=== PATIENT | female | born 1960 | race Caucasian/White ===

== ENCOUNTER 2019-05-23 09:37 | Outpatient (CLI) | payer MEDICARE, MEDICAID, SELFPAY ==
--- NOTE | 2019-05-23 09:57 | USCV_ITS ---
Laura Dunlap Age: 58 Gender: F : 1960 Exam Date: 05/23/2019 10:31 Ordering Phys: Jeannie Neff MD ([email or web address]) Technologist: Isidro Beauchamp [place]am Location: [facility] [place] Indication: IREG HEART BEAT BP: 130 / 80 HR: 95 Rhythm: Sinus Technical Quality: Fair MEASUREMENTS (Male / Female) Normal Values 2D ECHO LV Diastolic Diameter PLAX 2.6 cm 4.2 - 5.9 / 3.9 - 5.3 cm LV Systolic Diameter PLAX 1.8 cm IVS Diastolic Thickness 1.0 cm 0.6 - 1.0 / 0.6 - 0.9 cm IVS Systolic Thickness 0.9 cm LVPW Diastolic Thickness 1.1 cm 0.6 - 1.0 / 0.6 - 0.9 cm LVPW Systolic Thickness 1.1 cm LVOT Diameter 2.0 cm LV Ejection Fraction 2D Teich 62.8 % LV Ejection Fraction MOD 2C 65.8 % LV Ejection Fraction 2C AL 65.8 % LA Diameter 2.9 cm LA Width 3.9 cm LA Height 3.6 cm RA Width 3.7 cm RA Height 2.9 cm Aorta at Sinotubular Diameter 2.6 cm M-MODE Aortic Annulus Diameter 3.4 cm LA Ao Ratio MM 0.8 MV E Point Septal Separation 1.6 cm DOPPLER AV Peak Velocity 113.0 cm/s LVOT Peak Velocity 98.0 cm/s AV Area Cont Eq vti 3.0 cm squared AV Area Cont Eq pk 2.8 cm squared MV Area PHT 5.0 cm squared Mitral E to A Ratio 0.7 MV E' Velocity 13.0 cm/s Mitral E to MV E' Ratio 6.1 Mitral E to LV E' Lateral Ratio 4.4 Mitral E to LV E' Septal Ratio 10.3 TR Peak Velocity 163.0 cm/s TR Peak Gradient 10.7 mmHg Right Atrial Pressure 3.0 mmHg Pulmonary Artery Systolic Pressu 13.6 mmHg FINDINGS Left Ventricle Normal left ventricular cavity size. Normal left ventricular systolic function. Left ventricular ejection fraction is estimated at 65%. No regional wall motion abnormalities. Grade 1 diastolic dysfunction. Right Ventricle Normal right ventricular size and systolic function. Right ventricular systolic pressure 13.6 mmHg. Right Atrium Normal right atrial size. Left Atrium Normal left atrial size. Mitral Valve Structurally normal mitral valve. No mitral valve stenosis. Trace mitral valve regurgitation. Aortic Valve Structurally normal trileaflet aortic valve. No aortic valve stenosis. No aortic valve regurgitation. Tricuspid Valve Tricuspid valve not well visualized. Trace tricuspid valve regurgitation. Pulmonic Valve Pulmonic valve not well visualized. No pulmonary valve stenosis. Trace pulmonary valve regurgitation. Pericardium No pericardial effusion. Aorta Normal-sized aortic root. CONCLUSIONS 1. Normal left ventricular cavity size and systolic function. Left ventricular ejection fraction is estimated at 65%. No regional wall motion abnormalities. Grade 1 diastolic dysfunction. 2. Normal right ventricular size and systolic function. 3. No significant valvular abnormality. 4. Normal pulmonary artery pressure. 5. No prior similar studies to compare. Jeannie Neff MD (Electronically Signed) Final Date: 26 May 2019 17:46 S
== END 2019-05-23 09:38 | disposition home or self-care (01) ==
LOC: RAD 09:44
PROVIDERS: PCP Nurse Practitioner Family; Visit Provider Internal Medicine Cardiovascular Disease
DX: I08.1 Rheumatic disorders of both mitral and tricuspid valves (principal); R06.09 Other forms of dyspnea
CPT/HCPCS: 93306

== ENCOUNTER 2019-05-30 10:36 | Outpatient (CLI) | payer MEDICARE, MEDICAID, SELFPAY ==
[2019-06-02 16:02] LABS: Immunoglobulin E 15 kU/L (<OR=114)
== END 2019-05-30 10:37 | disposition home or self-care (01) ==
LOC: LAB 10:41
PROVIDERS: PCP Nurse Practitioner Family; Visit Provider Internal Medicine Critical Care Medicine
DX: J44.9 Chronic obstructive pulmonary disease, unspecified (principal)
CPT/HCPCS: 36415; 82785

== ENCOUNTER 2019-06-18 07:25 | Outpatient (RCR) | payer MEDICARE, MEDICAID, SELFPAY | END 2019-07-12 23:59 | disposition home or self-care (01) | LOC: PULRHB 07:25 | PROVIDERS: PCP Nurse Practitioner Family; Visit Provider Internal Medicine | DX: Z01.89 Encounter for other specified special examinations (principal) ==

== ENCOUNTER 2019-07-21 08:54 | Emergency (ER) | payer MEDICARE, MEDICAID, SELFPAY ==
--- NOTE | 2019-07-21 09:04 | XR_ITS ---
WS: [id number] PORTABLE CHEST HISTORY: cough/congestion COMPARISON: 03/28/2019 Lung volumes are decreased. There is minimal blunting of the LEFT costophrenic angle which is similar to prior studies. May be due to small amount of pleural thickening. No pleural effusion or pneumotho rax. Cardiac size: Normal. Mediastinum/Aorta: Normal mediastinum. No osseous abnormality seen. XR/XR chest 1V portable [id number] IMPRESSION: Minimal blunting of the LEFT costophrenic angle is unchanged. No pneumonia.
[2019-07-21 09:06] VITALS: BP 124/87; PULSE 102; RESP 18; TEMP 36.9; O2SAT 97; BMI 29.9
[2019-07-21 09:49] LABS: Basophils % 0.2 %; Eosinophils % 0.1 %; Hematocrit 41.5 % (37.0-47.0); Hemoglobin 12.8 g/dL (11.5-15.3); Lymphocytes # 1.2 10^3/uL (0.8-4.8); Lymphocytes % 12.6 %; Mean Corpuscular HGB Conc 30.8 g/dL (30.0-36.0); Mean Corpuscular Hemoglobin 28.1 pg (28.0-34.0); Mean Platelet Volume 9.1 fL (7.4-10.4); Monocytes # 0.5 10^3/uL (0.2-0.9); Monocytes % 5.5 %; Neutrophils # 7.9 10^3/uL (1.8-7.7); Neutrophils % 81.3 %; Nucleated Red Blood Cells % 0 %; Platelet Count 394 10^3/cmm (130-400); Red Blood Count 4.56 10^6/uL (4.1-5.3); Red Cell Distribution Width 13.2 % (12.1-15.1); White Blood Count 9.8 10^3/uL (4.0-10.0)
[2019-07-21 09:58] LABS: Influenza A by IFA Negative (Negative); Influenza B by IFA Negative (Negative)
[2019-07-21 10:05] LABS: Alanine Aminotransferase 9 U/L (0-33); Alkaline Phosphatase 112 IU/L (35-105); Aspartate Amino Transferase 21 U/L (0-32); Blood Urea Nitrogen 9 mg/dL (6-20); Carbon Dioxide 27 mmol/L (22-29); Chloride 102 mmol/L (98-107); Globulin 3.9 g/dL (1.3-4.6); Glomerular Filtration Rate 73.9 mL/min (90-130); Glucose 143 mg/dL (65-115); Osmolality Calculated 288 mOsm/kg (285-295); Sodium 140 mmol/L (136-145); Total Bilirubin 0.2 mg/dL (0.15-1.2); Total Protein 7.9 g/dL (6.6-8.7)
--- NOTE | 2019-07-21 10:23 | ED_ITS ---
HPI - SOB/Dyspnea General: Chief Complaint: Shortness of Breath/Dyspnea Stated Complaint: COUGHING Time Seen by Provider: 07/21/19 09:39 Source: patient and family Mode of arrival: ambulatory Limitations: no limitations History of Present Illness: HPI Narrative: Patient is a 58-year-old female who presents to ED today with complaints of cough and difficulty breathing. According to patient she has end-stage COPD and has been following up with pulmonology Dr. Bethea. Patient states over the past few days she has had a cough so bad that it has caused her to not be able to rest. She feels short of breath when coughing but otherwise normal. She has not been running fevers. Patient is chronically on 2 L of oxygen and has not had to increase this. MD elicited complaint: shortness of breath Pertinent past history: COPD Onset (ago): day(s) Timing: constant Severity: moderate Exacerbating factors: other (coughing) Relieving factors: nothing Known history of: COPD Associated symptoms: Reports no associated symptoms and chest congestion; Deny abdominal pain, chest pain, fever(s), hemoptysis, lightheadedness, nausea, palpitations, syncope or vomiting Review of Systems Const: Denies: fever, chills, body aches, change in appetite, change in weight, fatigue or malaise Eyes: Denies: change in vision or blurry vision ENMT: Denies: throat pain, enlarged tonsils or painful swallowing Card: Denies: chest pain, palpitations, irregular heart rhythm, edema, lightheadedness, syncope or pre-syncope Resp: Reports: shortness of breath, non-productive cough and chest congestion; Denies: wheezing or coughing up blood GI: Denies: abdominal pain, nausea or vomiting : Denies: flank pain, difficulty urinating or painful urination Musc: Denies: neck pain or back pain Skin/Breast: Denies: rash Neuro: Denies: headache, numbness in extremities, weakness in extremities or changes in sensation PFSH ED PFSH: Social History Smoking and tobacco status: former smoker Quit status (tobacco): has quit using tobacco Year quit tobacco: Age 26 - 1.5 PPDx10 Years Alcohol intake: never Lives independently: Yes Household members: spouse Marital status: History of recent travel: No Current gender identity: Female Physical Exam Const: COMMON NORMALS: no apparent distress, average body habitus, oriented x3, no limitations, healthy appearing, alert and well nourished HENMT: COMMON NORMALS: normocephalic, head/scalp atraumatic, hearing grossly normal bilaterally, external ears normal, EAC's normal, TM's normal bilaterally, external nose normal, nasal mucous membranes and turbinates normal, moist oral mucous membranes, oropharynx normal, dentition normal and gingiva normal HEAD & SCALP: normocephalic and atraumatic NOSE: external nose normal and nasal mucous membranes and turbinates normal EXTERNAL EAR: Yes external ears normal EXTERNAL AUDITORY CANAL: EAC's normal TYMPANIC MEMBRANE: TM's normal bilaterally Eye: COMMON NORMALS: PERRL, EOMs intact bilaterally, conjunctivae normal and no scleral icterus CONJUNCTIVA: Yes conjunctivae normal PUPIL: Yes PERRL Neck/C-Spine: COMMON NORMALS: full ROM, no lymphadenopathy and no meningeal signs Chest: COMMONS NORMALS: inspection of chest normal and palpation of chest normal Resp: COMMON NORMALS: normal respiratory effort AUSCULTATION: wheezes (faint; RUL, LLL) OTHER: dry sounding cough Cardio: COMMON NORMALS: regular rate and regular rhythm RATE: regular rate RHYTHM: regular rhythm Neuro: COMMON NORMALS: oriented x3 SENSORIUM/ORIENTATION: Yes alert MENINGEAL SIGNS: Yes no meningeal signs Skin: COMMON NORMALS: no rashes or lesions noted GENERAL SKIN EXAM: no rashes or lesions noted Course Vital Signs: Vital signs: Vital Signs Temperature 98.5 F 07/21/19 09:06 Pulse Rate 78 07/21/19 11:00 Respiratory Rate 20 H 07/21/19 11:00 Blood Pressure 145/85 07/21/19 11:00 Pulse Oximetry 98 07/21/19 11:00 MDM - SOB/Dyspnea MDM Narrative: Medical decision making narrative: Patient's labs are non- concerning. CXR is normal. She is not tachycardic or hypoxic. She has not required additional oxygen. 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 Strict return to ED precautions given. Lab Data: Labs: Lab Results 07/21/19 07/21/19 07/21/19 Range/Units 07:32 09:45 09:45 WBC 9.8 (4.0-10.0) 10^3/ uL RBC 4.56 (4.1-5.3) 10^6/u L Hgb 12.8 (11.5-15.3) g/dL Hct 41.5 (37.0-47.0) % MCV 91.0 (81-99) fL MCH 28.1 (28.0-34.0) pg MCHC 30.8 (30.0-36.0) g/dL RDW 13.2 (12.1-15.1) % Plt Count 394 (130-400) 10^3/c mm MPV 9.1 (7.4-10.4) fL Neut % (Auto) 81.3 % Lymph % (Auto) 12.6 % Jasper % (Auto) 5.5 % Eos % (Auto) 0.1 % Baso % (Auto) 0.2 % Neut # (Auto) 7.9 H (1.8-7.7) 10^3/u L Lymph # (Auto) 1.2 (0.8-4.8) 10^3/u L Jasper # (Auto) 0.5 (0.2-0.9) 10^3/u L Eos # (Auto) 0.0 (0.0-0.8) 10^3/u L Baso # (Auto) 0.0 (0.0-0.1) 10^3/u L Nucleated RBC % (a uto) 0 % Nucleated RBCs # 0.0 /100WBC Sodium 140 (136-145) mmol/L Potassium 5.0 (3.5-5.1) mmol/L Chloride 102 (98-107) mmol/L Carbon Dioxide 27 (22-29) mmol/L Anion Gap 16.0 (5-19) BUN 9 (6-20) mg/dL Creatinine 0.8 (0.5-0.9) mg/dL GFR Calculation 73.9 L (90-130) mL/min Glucose 143 H (65-115) mg/dL Calculated Osmolal ity 288 (285-295) mOsm/k g Calcium 10.0 (8.5-10.5) mg/dL Total Bilirubin 0.2 (0.15-1.2) mg/dL AST 21 (0-32) U/L ALT 9 (0-33) U/L Alkaline Phosphata se 112 H (35-105) IU/L Total Protein 7.9 (6.6-8.7) g/dL Albumin 4.0 (3.5-5.2) g/dL Globulin 3.9 (1.3-4.6) g/dL Influenza Type A A g Negative (Negative) POC Influenza B Ag Negative (Negative) Imaging Data^: CXR: Radiologist's impression: [address] [address] XRay Report Signed Patient: Laura Dunlap Unit #: [id number] : 1960 Age/Sex: 58 / F ADM Date: 07/21/19 Loc: ER Room/Bed: Attending Dr: Ordering Provider/Ordering MD: Racheal Ivey Date of Service: 07/21/19 Procedure(s): XR chest 1V portable [id number] Accession Number(s): [id number] Report Number: [id number] WS: [id number] PORTABLE CHEST HISTORY: cough/congestion COMPARISON: 03/28/2019 Lung volumes are decreased. There is minimal blunting of the LEFT costophrenic angle which is similar to prior studies. May be due to small amount of pleural thickening. No pleural effusion or pneumothorax. Cardiac size: Normal. Mediastinum/Aorta: Normal mediastinum. No osseous abnormality seen. XR/XR chest 1V portable [id number] IMPRESSION: Minimal blunting of the LEFT costophrenic angle is unchanged. No pneumonia. Dictated By: Natalya Chaudhary DO Signed By: Natalya Chaudhary DO Signed Date/Time: 07/21/19 1018 DD/ 1017 Discharge Plan Discharge Patient Disposition: Home, Self-Care Clinical Impression: Acute exacerbation of chronic obstructive airways disease Condition: Stable Prescriptions: New promethazine-DM 6.25-15 mg/5 mL syrup 5 ml PO Q6H PRN (Reason: cough) Qty: 100 RF: 0 doxycycline monohydrate 100 mg capsule 100 mg PO Q12H 10 Days Qty: 20 RF: 0 No Action fluticasone propionate 50 mcg/actuation spray,suspension 1 spray INTRANASAL Q12H 60 Days Qty: 36.4 RF: 2 Spiriva with HandiHaler 18 mcg capsule, w/inhalation device 1 cap INHALATION DAILY RF: 0 levothyroxine 88 mcg capsule 88 mcg PO DAILY RF: 0 albuterol sulfate [Ventolin HFA] 90 mcg/actuation HFA aerosol inhaler 2 puff INHALATION Q4H PRN (Reason: Shortness Of Breath) RF: 0 prednisone 5 mg tablet 5 mg PO DAILY RF: 0 azithromycin 500 mg tablet See Rx Instructions .ROUTE .COMPLEX RF: 0 aspirin [Adult Aspirin Regimen] 81 mg tablet,delayed release (DR/EC) 81 mg PO DAILY RF: 0 nitroglycerin 0.4 mg tablet, sublingual 0.4 mg SUBLINGUAL Q5M PRN (Reason: Chest Pain) RF: 0 budesonide [Pulmicort] 0.5 mg/2 mL suspension for nebulization 0.5 mg INHALATION BID Qty: 120 RF: 3 ipratropium-albuterol 0.5 mg-3 mg(2.5 mg base)/3 mL solution for nebulization 3 ml INHALATION QID Qty: 180 RF: 3 Discharge Orders: Discharge Order (Routine); Ordered 07/21/19 Ordered By: Racheal Ivey Referrals: [facility]PROY[facility] [Other] Germania Noble [Primary Care Provider] - Activity Restrictions/Additional Instructions: Please contact Dr. Bethea to schedule follow up visit. Return to the emergency department for worsening shortness of breath, having to increase her oxygen, fevers greater than 100.4, or any other concerns you may have. Discharge Date/Time: 07/21/19 11:00 Coding Level of Care Code ED Cancer Program Coordinator for Katherin Handy
[2019-07-21 10:32] VITALS: PULSE 98; RESP 17; O2SAT 98
[2019-07-21] MEDS: ipratropium-albuterol 3 mL Neb INHALATION (10:32)
[2019-07-21 10:38] VITALS: PULSE 92
--- NOTE | 2019-07-21 10:58 | PC.NURSE ---
PHYSICAL ASSESSMENT Chief Complaint: Short of breath GENERAL / NEURO / PSYCH: Alert and oriented x 4 AGAPITO COMA SCORE: 15 HEENT: No facial asymmetry noted. Mucous membranes are pink. RESPIRATORY: Lung sounds clear and equal. Non-productive cough CVS: Capillary refill less than 2 seconds. GI / : Abdomen soft and nontender and normal bowel sounds. SKIN: Skin intact. Skin is warm and dry. Normal skin turgor. -
[2019-07-21 11:00] VITALS: BP 145/85; PULSE 78; RESP 20; O2SAT 98
--- NOTE | 2019-07-22 11:15 | DCPLANNER ---
quality assurance project manager had message to schedule a follow up appointment for patient with [facility]. quality assurance project manager called [facility], spoke with Padmaja, gave clinic patients information. quality assurance project manager was told that patients information would be printed and reviewed. Clinic will alanna patient with appointment information.
--- NOTE | 2019-07-23 13:25 | DCPLANNER ---
Patient has a follow up appointment scheduled for Tuesday, August 06, 2019 at 2:[address] Neff. Clinic will call patient with appointment information.
--- NOTE | 2019-08-12 08:40 | DCPLANNER ---
Patient did attend appointment scheduled for 08.05.19 with [facility].
== END 2019-07-21 11:00 | disposition home or self-care (01) ==
PROVIDERS: Emergency Provider Physician Assistant; PCP Nurse Practitioner Family
DX: J44.1 Chronic obstructive pulmonary disease with (acute) exacerbation (principal); Z79.51 Long term (current) use of inhaled steroids; Z87.891 Personal history of nicotine dependence; Z99.81 Dependence on supplemental oxygen
CPT/HCPCS: 12345; 36415; 71045; 80053; 85025; 87804; 94640; 99281; 99283

== ENCOUNTER 2020-09-02 07:44 | Outpatient (CLI) | payer MEDICARE, MEDICAID, SELFPAY ==
--- NOTE | 2020-09-02 08:01 | USCV_ITS ---
Laura Dunlap Age: 60 Gender: F : 1960 Exam Date: 09/02/2020 08:25 Ordering Phys: Carlton Bethea MD Technologist: Shayy Allison Exam Location: [facility] – [place]_ Indication: SOB HISTORY: Shortness of breath PROCEDURES: Venous duplex imaging was performed in bilateral lower extremities. The following venous structures were evaluated: common femoral vein, profunda vein, proximal portion of the greater saphenous vein, superficial femoral vein, and the popliteal vein. In addition, the posterior tibial and peroneal trunk were evaluated. Serial compression, augmentation maneuvers, and spectral Doppler flow evaluation were performed. FINDINGS: Normal 2-D Doppler and augmentation and compressibility throughout the lower extremity venous structures. Additional imaging through the proximal calf veins also reveals no thrombus. Limited evaluation of the greater saphenous vein is patent with no thrombus.. CONCLUSIONS No evidence of right lower extremity DVT. No evidence of left lower extremity DVT. Reinaldo Guzman MD (Electronically Signed) Final Date: 02 September 2020 12:32 S
== END 2020-09-02 07:45 | disposition home or self-care (01) ==
LOC: RAD 07:49
PROVIDERS: PCP Nurse Practitioner Family; Visit Provider Internal Medicine Critical Care Medicine
DX: R06.02 Shortness of breath (principal)
CPT/HCPCS: 93970

== ENCOUNTER → 2020-11-08 12:47 | Outpatient (BNVA) | payer MEDICARE, MEDICAID, SELFPAY | PROVIDERS: PCP Nurse Practitioner Family; Visit Provider Nurse Practitioner | DX: R25.1 Tremor, unspecified (principal); R26.9 Unspecified abnormalities of gait and mobility; J44.9 Chronic obstructive pulmonary disease, unspecified; Z87.891 Personal history of nicotine dependence | CPT/HCPCS: 99204 ==

== ENCOUNTER 2021-04-16 07:27 | Emergency (ER) | payer MEDICARE, MEDICAID, SELFPAY ==
--- NOTE | 2021-04-16 07:36 | XRR_ITS ---
PROCEDURE INFORMATION: Exam: XR Chest Exam date and time: 04/16/2021 7:36 AM Age: 60 years old Clinical indication: Dyspnea TECHNIQUE: Imaging protocol: XR of the chest. Views: 1 view. Total images: 1 COMPARISON: CR XR chest 1V portable [id number] 07/21/2019 9:24 AM FINDINGS: Lungs: Unremarkable. No consolidation. Pleural spaces: Unremarkable. No pleural effusion. No pneumothorax. Heart/Mediastinum: Unremarkable. No cardiomegaly. Diaphragm: There is nonspecific elevation of the left hemidiaphragm. Bones/joints: Osseous structures are unchanged from the prior exam. XR/XR chest 1V portable [id number] IMPRESSION: No acute cardiopulmonary process. Radiation Dose CTDIVOL = (mGy): DLP = (mGy-cm)
[2021-04-16 07:39] VITALS: BP 168/96; PULSE 93; RESP 19; TEMP 37.1; O2SAT 96; BMI 30.9
[2021-04-16 08:03] LABS: Basophils # 0.1 10^3/uL (0.0-0.1); Basophils % 0.8 %; Eosinophils # 0.6 10^3/uL (0.0-0.8); Eosinophils % 6.4 %; Hematocrit 43.5 % (37.0-47.0); Lymphocytes # 1.7 10^3/uL (0.8-4.8); Mean Corpuscular HGB Conc 29.9 g/dL (30.0-36.0); Mean Corpuscular Hemoglobin 27.3 pg (28.0-34.0); Mean Corpuscular Volume 91.2 fl (81-99); Mean Platelet Volume 10.1 fL (7.4-10.4); Monocytes # 0.7 10^3/uL (0.2-0.9); Monocytes % 8.3 %; Neutrophils # 5.48 10^3/uL (1.8-7.7); Neutrophils % 64.3 %; Nucleated Red Blood Cells % 0 %; Platelet Count 339 10^3/cmm (130-400); Red Blood Count 4.77 10^6/uL (4.1-5.3); Red Cell Distribution Width 14.1 % (12.1-15.1); White Blood Count 8.5 10^3/uL (4.0-10.0)
--- NOTE | 2021-04-16 08:13 | W.ED.GENADLT ---
HPI - General Adult General: Chief complaint: Shortness of Breath/Dyspnea Stated complaint: SOB Time Seen by Provider: 04/16/21 07:33 History of Present Illness: HPI narrative: Patient is a 60-year-old female with a history of atrial fibrillation, end-stage COPD on 2 L oxygen presenting to the emergency room with cough, dyspnea x 10 days. Patient tells me that her granddaughter was sick with similar symptoms last week. However, patient has had persistence and cough despite taking her albuterol. Patient tells me that she underwent a course of Z-Girish treatment last week without any improvement in symptoms. And presents the emergency room for persistence of cough. Patient denies any fever or chills, nausea/vomiting, abdominal pain. Patient has not been tested for Covid and declined to be tested today. Patient denies any myalgia, generalized weakness or chest pain, palpitation or lightheadedness. She has not noticed increasing oxygen requirement. Onset: 10 days ago Duration:10 days Location:home Severity:moderate Review of Systems Narrative: Constitutional: No fever, no chills. HEENT: No vision changes CV: No chest pain, no palpitations PULM: +cough, +dyspnea. GI: No abdominal pain, no N/V/D. : No dysuria MSKEL: No muscle pain SKIN: No new rashes, no lesions. NEURO: No headache, no focal weakness. HEME: No visible bruises PSYCH: Normal mood PFSH ED PFSH: Medical History Chronic bronchitis Chronic cough Chronic respiratory failure COPD (chronic obstructive pulmonary disease) Neuropathy Tobacco use Surgical History H/O breast biopsy H/O tubal ligation History of bronchoscopy History of cholecystectomy History of hysterectomy Family History Mother , Age 42 Myocardial infarct Sister CAD (coronary artery disease) Brother Parkinson's disease Social History Smoking and tobacco status: former smoker Quit status (tobacco): has quit using tobacco Year quit tobacco: 1986 - .5 PPD x 10 Years Alcohol intake: never Lives independently: Yes Household members: spouse Marital status: Current occupational status: disabled History of recent travel: No Current gender identity: Female Physical Exam Narrative: EXAM NARRATIVE: Head: Atraumatic Eyes: PERRL, conjunctiva without injection ENT: Mucous membrane moist NECK: Supple, ROM intact LUNGS: +mild wheezing b/l CV: RRR ABDOMEN: Soft, nontender in all quadrants EXTREMITY: Normal ROM SKIN: No rash or erythema NEURO: Awake and alert, no focal motor deficits PSYCH: Normal mood and affect Course Vital Signs: Vital signs: Vital Signs Temperature 98.8 F 04/16/21 07:39 Pulse Rate 91 04/16/21 10:05 Respiratory Rate 20 H 04/16/21 10:05 Blood Pressure 144/93 04/16/21 10:05 Pulse Oximetry 99 04/16/21 10:05 MDM - General Adult MDM Narrative: Medical decision making narrative: Pt is a 60-year-old female with a history of end-stage COPD, atrial fibrillation presenting to the emergency room with cough and dyspnea x10 days. On exam, patient is afebrile, satting at 95% on room air. Patient is noted to have mild wheezing bilaterally in the lung pace. Findings consistent with possible bronchitis or viral airway syndrome. Will order obtain basic blood work including chest x-ray for evaluation. Patient received DuoNeb and prednisone in the emergency room with improvement in symptoms. Chest x-ray appears to be clear. No other suspicion for acute pneumonia. Rx albuterol inhaler PRN wheezing Disposition: Discharge. Patient counseled regarding diagnostic impression, treatment plan. Patient given ED strict return precautions to return for continuation, worsening, or development of new symptoms. Instructed to f/u w/ PCP regarding symptoms today. Patient verbalized understanding. Lab Data: Labs: Lab Results 04/16/21 04/16/21 07:07 07:07 WBC 8.5 10^3/uL 10^3/ uL (4.0-10.0) RBC 4.77 10^6/uL 10^6 /uL (4.1-5.3) Hgb 13.0 g/dL g/dL (11.5-15.3) Hct 43.5 % % (37.0-47.0) MCV 91.2 fl fl (81-99) MCH 27.3 pg L pg (28.0-34.0) MCHC 29.9 g/dL L g/dL (30.0-36.0) RDW 14.1 % % (12.1-15.1) Plt Count 339 10^3/cmm 10^3 /cmm (130-400) MPV 10.1 fL fL (7.4-10.4) Neut % (Auto) 64.3 % % Lymph % (Auto) 20.0 % % Luce % (Auto) 8.3 % % Eos % (Auto) 6.4 % % Baso % (Auto) 0.8 % % Neut # (Auto) 5.48 10^3/uL 10^3 /uL (1.8-7.7) Lymph # (Auto) 1.7 10^3/uL 10^3/ uL (0.8-4.8) Luce # (Auto) 0.7 10^3/uL 10^3/ uL (0.2-0.9) Eos # (Auto) 0.6 10^3/uL 10^3/ uL (0.0-0.8) Baso # (Auto) 0.1 10^3/uL 10^3/ uL (0.0-0.1) Nucleated RBC % (a uto) 0 % % Nucleated RBCs # 0.0 /100WBC /100W BC Sodium 138 mmol/L mmol/L (136-145) Potassium 3.9 mmol/L mmol/L (3.5-5.1) Chloride 102 mmol/L mmol/L (98-107) Carbon Dioxide 23 mmol/L mmol/L (22-29) Anion Gap 16.9 (5-19) BUN 8 mg/dL mg/dL (6-20) Creatinine 0.6 mg/dL mg/dL (0.5-0.9) GFR Calculation 102.3 mL/min mL/m in (90-130) Glucose 121 mg/dL H mg/dL (65-115) Calculated Osmolal ity 286 mOsm/kg mOsm/ kg (285-295) Calcium 8.8 mg/dL mg/dL (8.5-10.5) Imaging Data^: Other Imaging: Radiologist's impression: [address], [place] [address]GHwk ReportSigned Patient: Corbin Dunlap #: [id number]: 2Acct#:[id number]/Sex: 60 / FADM Date: 04/16/21Loc: ERRoom/Bed:Attending Dr: Ordering Provider/Ordering MD: Guilherme Ravi MD Date of Service: 04/16/21 Procedure(s): XR chest 1V portable [id number] Accession Number(s): [id number] Report Number: [id number] PROCEDURE INFORMATION: Exam: XR Chest Exam date and time: 04/16/2021 7:36 AM Age: 60 years old Clinical indication: Dyspnea TECHNIQUE: Imaging protocol: XR of the chest. Views: 1 view. Total images: 1 COMPARISON: CR XR chest 1V portable [id number] 07/21/2019 9:24 AM FINDINGS: Lungs: Unremarkable. No consolidation. Pleural spaces: Unremarkable. No pleural effusion. No pneumothorax. Heart/Mediastinum: Unremarkable. No cardiomegaly. Diaphragm: There is nonspecific elevation of the left hemidiaphragm. Bones/joints: Osseous structures are unchanged from the prior exam. XR/XR chest 1V portable [id number] IMPRESSION: No acute cardiopulmonary process. Radiation Dose CTDIVOL = (mGy): DLP = (mGy-cm) Dictated By:Hema Reynolds MDSigned By:Hema Reynolds MDSigned Date/Time:04/16/21 0917DD/ 0736 Discharge Plan Discharge Patient Disposition: Home Clinical Impression: Dyspnea, Cough Condition: Stable Prescriptions: New albuterol sulfate 90 mcg/actuation HFA aerosol inhaler 2 inh inhalation Q4H PRN (Reason: shortness of breath or wheezing) 5 Days Qty: 6.7 RF: 0 No Action Levemir FlexTouch U-100 Insuln 100 unit/mL (3 mL) insulin pen 100 unit SUBCUT DAILY RF: 0 levothyroxine 88 mcg capsule 88 mcg PO DAILY RF: 0 nitroglycerin 0.4 mg tablet, sublingual 0.4 mg SUBLINGUAL Q5M PRN (Reason: Chest Pain) RF: 0 ipratropium-albuterol 0.5 mg-3 mg(2.5 mg base)/3 mL solution for nebulization 3 ml INHALATION QID Qty: 180 RF: 3 prednisone 20 mg tablet 20 mg PO DAILY Qty: 90 RF: 2 azithromycin 500 mg tablet See Rx Instructions .ROUTE .COMPLEX Qty: 15 RF: 3 budesonide-formoterol [Symbicort] 160-4.5 mcg/actuation HFA aerosol inhaler See Rx Instructions .ROUTE .COMPLEX Qty: 11 RF: 3 albuterol sulfate 90 mcg/actuation HFA aerosol inhaler See Rx Instructions .ROUTE .COMPLEX Qty: 18 RF: 3 Spiriva with HandiHaler 18 mcg capsule, w/inhalation device 1 cap inhalation DAILY Qty: 30 RF: 3 Discharge Orders: Discharge ED (Routine); Ordered 04/16/21 Ordered By: Guilherme Ravi Referrals: Germania Noble FNP [Primary Care Provider] - Discharge Diet: Advance as tolerated Discharge Activity: Resume usual activity Patient Instructions: Acute Cough (ED) Activity Restrictions/Additional Instructions: Come back to the emergency room if your symptoms worsen, have any shortness of breath, fever/chills, dehydration, inability tolerate p.o., any difficulty breathing, or any new or concerning complaints. Pleaes use the incentive spirometer. Do breathing treatments every 4 hrs. Follow up with your PCP to discuss different steroid options. Coding Level of Care Code ED Director Of Volunteer Services for Katherin Handy
[2021-04-16 08:16] LABS: Blood Urea Nitrogen 8 mg/dL (6-20); Calcium 8.8 mg/dL (8.5-10.5); Carbon Dioxide 23 mmol/L (22-29); Chloride 102 mmol/L (98-107); Glomerular Filtration Rate 102.3 mL/min (90-130); Glucose 121 mg/dL (65-115); Osmolality Calculated 286 mOsm/kg (285-295); Sodium 138 mmol/L (136-145)
[2021-04-16] MEDS: ipratropium-albuterol 3 mL Neb INHALATION (08:24)
[2021-04-16 08:26] LABS: Anion Gap 16.9 (5-19); Potassium 3.9 mmol/L (3.5-5.1)
[2021-04-16 08:29] VITALS: PULSE 86; RESP 16; O2SAT 98
[2021-04-16 08:50] VITALS: PULSE 88; RESP 18; O2SAT 98
[2021-04-16 09:54] VITALS: BP 150/87; PULSE 96; RESP 20; O2SAT 100
[2021-04-16 10:05] VITALS: BP 144/93; PULSE 91; RESP 20; O2SAT 99
== END 2021-04-16 10:07 | disposition home or self-care (01) ==
PROVIDERS: Emergency Provider Emergency Medicine; PCP Nurse Practitioner Family
DX: R05.9 Cough, unspecified (principal); R06.00 Dyspnea, unspecified; Z79.4 Long term (current) use of insulin; J44.9 Chronic obstructive pulmonary disease, unspecified; Z87.891 Personal history of nicotine dependence; Z99.81 Dependence on supplemental oxygen
CPT/HCPCS: 71045; 80048; 85025; 94640; 99284

== ENCOUNTER 2021-07-24 18:06 | Emergency (ER) | payer MEDICARE, MEDICAID, SELFPAY ==
[2021-07-24 18:11] VITALS: BP 147/81; PULSE 101; RESP 16; TEMP 36.7; O2SAT 95; BMI 30.9
--- NOTE | 2021-07-24 18:27 | ECG_ITS ---
[facility] Test Date: 2021-07-24 Pat Name: Laura Dunlap Department: Room: Gender: Female Plate Setter: : 1960 Requested By: Teo Tucker Order Number: [id number] Marylou MD: Afshin Flynn M.D. Measurements Intervals [place] Rate: 96 P: 78 NM: 134 QRS: 58 QRSD: 100 T: 39 QT: 344 QTc: 437 Interpretive Statements SINUS RHYTHM Compared to ECG 03/05/2019 21:26:59 No significant changes Electronically Signed On 07-25-2021 21:09:58 CDT by Afshin Flynn M.D. [email or web address] - [facility], inc.[facility][id number]
--- NOTE | 2021-07-24 18:27 | XRR_ITS ---
PROCEDURE INFORMATION: Exam: XR Chest Exam date and time: 07/24/2021 6:27 PM Age: 60 years old Clinical indication: Sternal or substernal pain; Additional info: Cp TECHNIQUE: Imaging protocol: XR of the chest. Views: 1 view. COMPARISON: CR XR chest 1V portable [id number] 04/16/2021 7:50 AM FINDINGS: Lungs: There is no consolidation. Pleural spaces: There is no pleural effusion or pneumothorax. Heart/Mediastinum: Cardiomediastinal contours are unremarkable. Diaphragm: There is mild asymmetric elevation of the left hemidiaphragm. Bones/joints: Bones are unremarkable. XR/XR chest 1V portable [id number] IMPRESSION: No acute findings.
--- NOTE | 2021-07-24 18:46 | USR_ITS ---
PROCEDURE INFORMATION: Exam: US Duplex Left Lower Extremity Veins, Limited Exam date and time: 07/24/2021 6:46 PM Age: 60 years old Clinical indication: Pain; Leg, lower; Left; Additional info: Le pain and swelling TECHNIQUE: Imaging protocol: Real-time Duplex ultrasound of the Left Lower Extremity with 2-D loco scale, color Doppler flow and spectral waveform analysis with image documentation. Limited exam focused on the left lower extremity veins. COMPARISON: No relevant prior studies available. FINDINGS: Left deep veins: Unremarkable. The common femoral, femoral, proximal profunda femoral and popliteal veins are patent without thrombus. Normal Doppler waveforms. Normal compressibility and/or augmentation response. Left superficial veins: Unremarkable. Saphenofemoral junction is patent without thrombus. Soft tissues: Unremarkable. US/[place] [id number] IMPRESSION: No evidence of deep vein thrombosis.
--- NOTE | 2021-07-24 19:09 | ED_ITS ---
HPI - Chest Pain General: Chief Complaint: Chest Pain Stated Complaint: Chest Pain Time Seen by Provider: 07/24/21 18:26 Source: patient and family Mode of arrival: wheelchair History of Present Illness: 60-year-old female with a history of significant COPD, on 2 L at home. She presents with 3 days of increasing chest discomfort. It radiates to her back. It is not sharp, more of a pressure. Mild nausea with it. No diaphoresis. It does not radiate into her arms. She has been coughing a bit more and producing some more sputum. No fever. She took a COVID-19 test at home today and it was negative. She has noticed some left lower extremity pain as well. May be some mild swelling to the left lower extremity. She notes that she has a history of paroxysmal atrial fibrillation. She has no history of coronary disease MD complaint: chest pain and chest discomfort Pertinent past history: other Onset (ago): day(s) (3) Timing of current episode: constant Prior episodes: No Onset: during rest Pain location: substernal Pain radiation: back Severity: moderate Quality: tightness, aching and heaviness Relieving factors: nothing Exacerbating factors: exertion Context: other Associated symptoms: Reports dyspnea, leg edema and nausea; Deny abdominal pain, diaphoresis, fever(s), palpitations, syncope or vomiting Treatment prior to arrival: oxygen Review of Systems Const: Denies: fever(s) or diaphoresis Eyes: Denies: change in vision ENMT: Denies: throat pain Card: Reports: chest pain; Denies: palpitations or syncope Resp: Reports: dyspnea and productive cough GI: Reports: nausea; Denies: abdominal pain or vomiting Musc: Denies: neck pain PFSH ED PFSH: Medical History Chronic bronchitis Chronic cough Chronic respiratory failure COPD (chronic obstructive pulmonary disease) Neuropathy Tobacco use Surgical History H/O breast biopsy H/O tubal ligation History of bronchoscopy History of cholecystectomy History of hysterectomy Family History Mother , Age 42 Myocardial infarct Sister CAD (coronary artery disease) Brother Parkinson's disease Social History Smoking and tobacco status: former smoker Quit status (tobacco): has quit using tobacco Year quit tobacco: 1986 - 1.5 PPD x 10 Years Alcohol intake: never Lives independently: Yes Household members: spouse Marital status: Current occupational status: disabled History of recent travel: No Current gender identity: Female Physical Exam Const: COMMON NORMALS: patient oriented x3 GENERAL APPEARANCE: cooperative and frail appearing (Mildly) ORIENTATION/CONSCIOUSNESS: Yes awake and Yes oriented to time HENMT: COMMON NORMALS: normocephalic and atraumatic HEAD & SCALP: normocephalic and atraumatic Eye: COMMON NORMALS: Equal, round and reactive pupils present and EOMs intact bilaterally PUPIL: Yes Equal, round and reactive pupils present Chest: COMMONS NORMALS: normal inspection of the chest CHEST: No tenderness Resp: COMMON NORMALS: normal respiratory effort, No use of accessory muscles and clear to auscultation bilaterally AUSCULTATION: clear to auscultation bilaterally and diminished lung sounds Cardio: COMMON NORMALS: regular rate and regular rhythm RATE: regular rate RHYTHM: regular rhythm GI: COMMON NORMALS: Normal to inspection, nondistended, normoactive bowel sounds present, Soft to palpation and non-tender PALPATION: Yes Soft to palpation Extremity: NARRATIVE EXTREMITY EXAM: Examination of the left lower extremity reveals some calf tenderness. There is no significant edema. No redness or heat Neuro: COMMON NORMALS: patient oriented x3 SENSORIUM/ORIENTATION: Yes oriented to time SPEECH: speech normal Skin: COMMON NORMALS: no rashes or lesions noted GENERAL SKIN EXAM: no rashes or lesions noted Course Vital Signs: Vital signs: Vital Signs Temperature 98.2 F 07/24/21 19:33 Pulse Rate 96 07/24/21 19:41 Respiratory Rate 16 07/24/21 19:41 Blood Pressure 140/99 07/24/21 19:33 Pulse Oximetry 99 07/24/21 19:41 MDM - Chest Pain Medical Decision Making 60-year-old female with a history of COPD. She presents with chest discomfort. She has some shortness of breath as well. She has sputum production. Her white blood cell count is 12. No left shift. Chest x-ray is negative. D-dimer is negative. Troponin is 9. Her EKG shows a normal sinus rhythm with normal axis and intervals, rate is 95, there is no acute ST changes. She feels better after a DuoNeb treatment here. Discussed need for corticosteroid treatment, antibiotics to cover sputum, and nebulization at home. She has an intolerance to Solu-Medrol, and steroids at higher doses. She requests to be able to take 40 mg of her own prednisone at home. We will place her on a taper over several days, have her do nebulizer treatments at home, and cover her sputum. Lab Data : 07/24/21 19:15 07/24/21 19:15 Radiology Impressions Chest X-Ray 07/24/21 18:27 IMPRESSION: No acute findings. Venous Duplex 07/24/21 18:46 IMPRESSION: No evidence of deep vein thrombosis. Laboratory Results WBC 12.3 10^3/uL (4.0-10.0) H 07/24/21 19:15 RBC 4.55 10^6/uL (4.1-5.3) 07/24/21 19:15 Hgb 12.4 g/dL (11.5-15.3) 07/24/21 19:15 Hct 40.2 % (37.0-47.0) 07/24/21 19:15 MCV 88.4 fl (81-99) 07/24/21 19:15 MCH 27.3 pg (28.0-34.0) L 07/24/21 19:15 MCHC 30.8 g/dL (30.0-36.0) 07/24/21 19:15 RDW 13.7 % (12.1-15.1) 07/24/21 19:15 Plt Count 390 10^3/cmm (130-400) 07/24/21 19:15 MPV 9.2 fL (7.4-10.4) 07/24/21 19:15 Neut % (Auto) 65.4 % 07/24/21 19:15 Lymph % (Auto) 23.9 % 07/24/21 19:15 [place] % (Auto) 7.7 % 07/24/21 19:15 Eos % (Auto) 2.5 % 07/24/21 19:15 Baso % (Auto) 0.3 % 07/24/21 19:15 Neut # (Auto) 8.06 10^3/uL (1.8-7.7) H 07/24/21 19:15 Lymph # (Auto) 3.0 10^3/uL (0.8-4.8) 07/24/21 19:15 [place] # (Auto) 1.0 10^3/uL (0.2-0.9) H 07/24/21 19:15 Eos # (Auto) 0.3 10^3/uL (0.0-0.8) 07/24/21 19:15 Baso # (Auto) 0.0 10^3/uL (0.0-0.1) 07/24/21 19:15 Nucleated RBC % (auto) 0 % 07/24/21 19:15 Nucleated RBCs # 0.0 /100WBC 07/24/21 19:15 D-Dimer 0.55 ug/mIFEU (0-0.59) 07/24/21 19:15 Sodium 139 mmol/L (136-145) 07/24/21 19:15 Potassium 4.1 mmol/L (3.5-5.1) 07/24/21 19:15 Chloride 99 mmol/L (98-107) 07/24/21 19:15 Carbon Dioxide 30 mmol/L (22-29) H 07/24/21 19:15 Anion Gap 14.1 (5-19) 07/24/21 19:15 BUN 10 mg/dL (6-20) 07/24/21 19:15 Creatinine 0.8 mg/dL (0.5-0.9) 07/24/21 19:15 GFR Calculation 73.4 mL/min (90-130) L 07/24/21 19:15 Glucose 140 mg/dL (65-115) H 07/24/21 19:15 Calculated Osmolality 289 mOsm/kg (285-295) 07/24/21 19:15 Calcium 8.8 mg/dL (8.5-10.5) 07/24/21 19:15 Total Bilirubin 0.2 mg/dL (0.15-1.2) 07/24/21 19:15 AST 17 U/L (0-32) 07/24/21 19:15 ALT 21 U/L (0-33) 07/24/21 19:15 Alkaline Phosphatase 112 IU/L (35-105) H 07/24/21 19:15 Troponin T Baseline 9 ng/L (0-10) 07/24/21 19:15 NT-Pro-B Natriuret Pep 25 pg/mL (0-125) 07/24/21 19:15 Total Protein 6.7 g/dL (6.6-8.7) 07/24/21 19:15 Albumin 4.6 g/dL (3.5-5.2) 07/24/21 19:15 Globulin 2.1 g/dL (1.3-4.6) 07/24/21 19:15 Discharge Plan Discharge Patient Disposition: Home Clinical Impression: Atypical chest pain, Acute exacerbation of chronic obstructive pulmonary disease Condition: Stable Prescriptions: New prednisone 20 mg tablet See Rx Instructions .ROUTE .COMPLEX Qty: 11 0RF Rx Instructions: 40mg(2) PO QDX3D, then 20mg(1) PO QDx3d, then 10mg(1/2) PO QDx3d doxycycline hyclate 100 mg tablet 100 mg PO BID 7 Days Qty: 14 0RF No Action Levemir FlexTouch U-100 Insuln 100 unit/mL (3 mL) insulin pen 100 unit SUBCUT DAILY 0RF levothyroxine 88 mcg capsule 88 mcg PO DAILY 0RF nitroglycerin 0.4 mg tablet, sublingual 0.4 mg SUBLINGUAL Q5M PRN (Reason: Chest Pain) 0RF ipratropium-albuterol 0.5 mg-3 mg(2.5 mg base)/3 mL solution for nebulization 3 ml INHALATION QID Qty: 180 3RF prednisone 20 mg tablet 20 mg PO DAILY Qty: 90 2RF azithromycin 500 mg tablet See Rx Instructions .ROUTE .COMPLEX Qty: 15 3RF Dose Instruction: TAKE 1 TABLET BY MOUTH EVERY OTHER DAY Rx Instructions: TAKE 1 TABLET BY MOUTH EVERY OTHER DAY albuterol sulfate 90 mcg/actuation HFA aerosol inhaler See Rx Instructions .ROUTE .COMPLEX Qty: 18 3RF Dose Instruction: INHALE 2 PUFFS BY MOUTH EVERY 4 HOURS NEEDED FOR SHORTNESS OF BREATH Rx Instructions: INHALE 2 PUFFS BY MOUTH EVERY 4 HOURS NEEDED FOR SHORTNESS OF BREATH Spiriva with HandiHaler 18 mcg capsule, w/inhalation device 1 cap inhalation DAILY Qty: 30 3RF Rx Instructions: puncture 1 cap using device; one dose = 2 inhalations budesonide-formoterol [Symbicort] 160-4.5 mcg/actuation HFA aerosol inhaler See Rx Instructions .ROUTE .COMPLEX Qty: 11 5RF Dose Instruction: Inhale 2 puffs by mouth twice daily Rx Instructions: Inhale 2 puffs by mouth twice daily Discharge Orders: Discharge ED (Routine); Ordered 07/24/21 Ordered By: Teo Ford Referrals: Germania Noble FNP [Primary Care Provider] - 4-7 days Patient Instructions: Chest Pain (ED), COPD (Chronic Obstructive Pulmonary Disease) (ED) Activity Restrictions/Additional Instructions: Return for worsening chest pain despite treatment, worsening shortness of breath despite treatment, fever greater than 100 despite 2-3 doses of antibiotics, any other concerning symptoms. Use your home nebulizer solution every 4 hours while awake for the next 48 hours, then as needed. Medications as directed. 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
[2021-07-24 19:23] LABS: Basophils % 0.3 %; Eosinophils # 0.3 10^3/uL (0.0-0.8); Eosinophils % 2.5 %; Hematocrit 40.2 % (37.0-47.0); Hemoglobin 12.4 g/dL (11.5-15.3); Lymphocytes % 23.9 %; Mean Corpuscular HGB Conc 30.8 g/dL (30.0-36.0); Mean Corpuscular Hemoglobin 27.3 pg (28.0-34.0); Mean Corpuscular Volume 88.4 fl (81-99); Mean Platelet Volume 9.2 fL (7.4-10.4); Monocytes % 7.7 %; Neutrophils # 8.06 10^3/uL (1.8-7.7); Neutrophils % 65.4 %; Nucleated Red Blood Cells % 0 %; Platelet Count 390 10^3/cmm (130-400); Red Blood Count 4.55 10^6/uL (4.1-5.3); Red Cell Distribution Width 13.7 % (12.1-15.1); White Blood Count 12.3 10^3/uL (4.0-10.0)
[2021-07-24 19:33] VITALS: BP 140/99; PULSE 88; RESP 20; TEMP 36.8; O2SAT 97
[2021-07-24 19:37] LABS: D Dimer 0.55 ug/mIFEU (0-0.59)
[2021-07-24] MEDS: ipratropium-albuterol 3 mL Neb INHALATION (19:40)
[2021-07-24 19:41] VITALS: PULSE 96; RESP 16; O2SAT 99
[2021-07-24 19:42] LABS: Troponin(5th) Baseline 9 ng/L (0-10)
[2021-07-24 19:51] LABS: Alanine Aminotransferase 21 U/L (0-33); Albumin Level 4.6 g/dL (3.5-5.2); Alkaline Phosphatase 112 IU/L (35-105); Anion Gap 14.1 (5-19); Aspartate Amino Transferase 17 U/L (0-32); Blood Urea Nitrogen 10 mg/dL (6-20); Calcium 8.8 mg/dL (8.5-10.5); Carbon Dioxide 30 mmol/L (22-29); Chloride 99 mmol/L (98-107); Globulin 2.1 g/dL (1.3-4.6); Glomerular Filtration Rate 73.4 mL/min (90-130); Glucose 140 mg/dL (65-115); NT Pro B Type Natriuretic Pept 25 pg/mL (0-125); Osmolality Calculated 289 mOsm/kg (285-295); Potassium 4.1 mmol/L (3.5-5.1); Sodium 139 mmol/L (136-145); Total Bilirubin 0.2 mg/dL (0.15-1.2); Total Protein 6.7 g/dL (6.6-8.7)
[2021-07-24 20:58] VITALS: BP 140/99; PULSE 96; RESP 17; O2SAT 99
== END 2021-07-24 20:59 | disposition home or self-care (01) ==
PROVIDERS: Emergency Provider Emergency Medicine; PCP Nurse Practitioner Family
DX: R07.89 Other chest pain (principal); J44.1 Chronic obstructive pulmonary disease with (acute) exacerbation; Z79.4 Long term (current) use of insulin; Z87.891 Personal history of nicotine dependence
CPT/HCPCS: 36415; 71045; 80053; 83880; 84484; 85025; 85378; 93005; 93971; 94640; 99284

== ENCOUNTER → 2021-08-04 11:12 | Outpatient (BNVA) | payer MEDICARE, MEDICAID, SELFPAY | PROVIDERS: PCP Nurse Practitioner Family; Visit Provider Internal Medicine Critical Care Medicine | DX: J44.9 Chronic obstructive pulmonary disease, unspecified (principal); J38.2 Nodules of vocal cords; J96.10 Chronic respiratory failure, unspecified whether with hypoxia or hypercapnia; Z87.891 Personal history of nicotine dependence; R05.3 Chronic cough | CPT/HCPCS: 99214 ==

== ENCOUNTER 2021-08-31 09:01 | Emergency (ER) | payer MEDICARE, MEDICAID, SELFPAY ==
[2021-08-31 09:07] VITALS: BP 134/78; PULSE 94; RESP 16; TEMP 36.8; O2SAT 99; BMI 30.5
[2021-08-31 09:18] VITALS: BP 134/78; PULSE 100; RESP 16; O2SAT 98
--- NOTE | 2021-08-31 09:22 | W.ED.BACK ---
HPI - Back Pain/Injury General: Chief Complaint: Back Pain/Injury Stated Complaint: BACK PAIN Time Seen by Provider: 08/31/21 09:03 Source: patient Mode of arrival: EMS Limitations: no limitations History of Present Illness: 61-year-old female presents emergency room complaining of back pain. She did some physical therapy yesterday and her back feels worse this morning she does not have any urinary retention no fecal incontinence. No saddle paresthesias. No dysuria urgency or frequency. MD elicited complaint: back pain Pertinent past history: prior back pain Onset (ago): hour(s) Timing: constant Severity: moderate Similar Symptoms Previously: Yes Quality: spasming Location: lumbar spine Radiation: none Exacerbating factors: sitting upright and walking Relieving factors: supine Associated symptoms: Deny abdominal pain, arthralgias, chills, change in bowel habits, dysuria, fatigue, fecal incontinence, fever(s), hematuria, myalgias, nausea, numbness, syncope, tingling/numbness/burning, urinary frequency, urinary urgency, vomiting or weakness Review of Systems Const: Denies: fever(s), chills or fatigue ENMT: Denies: throat pain, ear or mastoid pain, nasal discharge or nasal congestion Card: Denies: chest pain, palpitations, irregular heart rhythm or syncope Resp: Denies: dyspnea, productive cough or non-productive cough GI: Denies: abdominal pain, nausea, vomiting, fecal incontinence or change in bowel habits : Denies: dysuria, urinary urgency or hematuria Skin/Breast: Denies: rash or pruritus PFSH ED PFSH: Medical History Chronic bronchitis Chronic cough Chronic respiratory failure COPD (chronic obstructive pulmonary disease) Neuropathy Tobacco use Surgical History H/O breast biopsy H/O tubal ligation History of bronchoscopy History of cholecystectomy History of hysterectomy Family History Mother , Age 42 Myocardial infarct Sister CAD (coronary artery disease) Brother Parkinson's disease Social History Smoking and tobacco status: former smoker Quit status (tobacco): has quit using tobacco Year quit tobacco: 1986 - 1.5 PPD x 10 Years Former quit date comment: Started at age 15 years Alcohol intake: never Lives independently: Yes Household members: spouse Marital status: Current occupational status: disabled History of recent travel: No Current gender identity: Female Physical Exam Const: COMMON NORMALS: no acute distress GENERAL APPEARANCE: cooperative and comfortable ORIENTATION/CONSCIOUSNESS: Yes awake, Yes oriented to person, Yes oriented to place and Yes oriented to time HENMT: COMMON NORMALS: normocephalic, atraumatic and hearing grossly normal bilaterally HEAD & SCALP: normocephalic and atraumatic Neck/C-Spine: COMMON NORMALS: no JVD Resp: COMMON NORMALS: normal respiratory effort, No retractions, No use of accessory muscles and clear to auscultation bilaterally AUSCULTATION: clear to auscultation bilaterally Cardio: COMMON NORMALS: no JVD, regular rate, regular rhythm and No murmurs present (Cardio) RATE: regular rate RHYTHM: regular rhythm GI: COMMON NORMALS: Soft to palpation and No hepatosplenomegaly present AUSCULTATION: Yes normoactive bowel sounds PALPATION: Yes Soft to palpation, No Tenderness to palpation present (GI), No Guarding due to palpation present (GI) and Yes No hepatosplenomegaly present Extremity: COMMON NORMALS: normal to inspection, capillary refill normal, no clubbing, cyanosis or edema, no calf tenderness and no pedal edema OTHER: Straight leg raising negative bilaterally Neuro: SENSORIUM/ORIENTATION: Yes oriented to person, Yes oriented to place and Yes oriented to time Skin: COMMON NORMALS: no rashes or lesions noted GENERAL SKIN EXAM: no rashes or lesions noted Course Vital Signs: Vital signs: Vital Signs Temperature 98.3 F 08/31/21 09:07 Pulse Rate 90 08/31/21 11:17 Respiratory Rate 16 08/31/21 11:17 Blood Pressure 131/86 08/31/21 11:17 Pulse Oximetry 99 08/31/21 11:17 MDM - Back Pain/Injury Medical Decision Making No sign of cauda equina syndrome. We will go ahead and treat as my skeletal pain with lumbar radicular. Follow-up with primary care to see if further evaluation is warranted with advanced imaging. Medical Records I reviewed the patient's medical records. Discharge Plan Discharge Patient Disposition: Home Clinical Impression: Lumbar radiculopathy Condition: Stable Prescriptions: New prednisone 20 mg tablet 20 mg PO TID Qty: 15 0RF Rx Instructions: 1 p.o. 3 times daily x3 days, 1 p.o. twice daily x2 days, 1 p.o. daily x2 days diclofenac sodium 75 mg tablet,delayed release (DR/EC) 75 mg PO Q12H PRN (Reason: pain) Qty: 20 0RF tizanidine 4 mg capsule 4 mg PO Q6H PRN (Reason: muscle spasticity) Qty: 20 0RF Rx Instructions: do not exceed 3 doses per 24 hrs Discontinued prednisone 2.5 mg tablet 2.5 mg PO DAILY 30 Days Qty: 30 0RF prednisone 20 mg tablet 20 mg PO DAILY Qty: 90 2RF prednisone 20 mg tablet See Rx Instructions .ROUTE .COMPLEX Qty: 11 0RF Rx Instructions: 40mg(2) PO QDX3D, then 20mg(1) PO QDx3d, then 10mg(1/2) PO QDx3d No Action Levemir FlexTouch U-100 Insuln 100 unit/mL (3 mL) insulin pen 100 unit SUBCUT DAILY 0RF revefenacin 175 mcg/3 mL solution for nebulization 175 mcg inhalation DAILY 30 Days Qty: 90 3RF levothyroxine 88 mcg capsule 88 mcg PO DAILY 0RF nitroglycerin 0.4 mg tablet, sublingual 0.4 mg SUBLINGUAL Q5M PRN (Reason: Chest Pain) 0RF ipratropium-albuterol 0.5 mg-3 mg(2.5 mg base)/3 mL solution for nebulization 3 ml INHALATION QID Qty: 180 3RF albuterol sulfate 90 mcg/actuation HFA aerosol inhaler See Rx Instructions .ROUTE .COMPLEX Qty: 18 3RF Dose Instruction: INHALE 2 PUFFS BY MOUTH EVERY 4 HOURS NEEDED FOR SHORTNESS OF BREATH Rx Instructions: INHALE 2 PUFFS BY MOUTH EVERY 4 HOURS NEEDED FOR SHORTNESS OF BREATH budesonide-formoterol [Symbicort] 160-4.5 mcg/actuation HFA aerosol inhaler See Rx Instructions .ROUTE .COMPLEX Qty: 11 5RF Dose Instruction: Inhale 2 puffs by mouth twice daily Rx Instructions: Inhale 2 puffs by mouth twice daily azithromycin 500 mg tablet See Rx Instructions .ROUTE .COMPLEX Qty: 15 0RF Dose Instruction: TAKE 1 TABLET BY MOUTH EVERY OTHER DAY Rx Instructions: TAKE 1 TABLET BY MOUTH EVERY OTHER DAY Discharge Orders: Discharge ED (Routine); Ordered 08/31/21 Ordered By: Dg Perez Referrals: Germania Noble FNP [Primary Care Provider] - Discharge Diet: Usual diet Discharge Activity: Increase activity as tolerated Patient Instructions: Opioid Safety Activity Restrictions/Additional Instructions: Stop all previous prednisone and take prednisone taper as outlined above. Use diclofenac and tizanidine as needed. Follow-up with the pain clinic or your scheduled to have the nerve block done. Monitor your blood sugar closely while on the increased dose of prednisone. 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
[2021-08-31 11:17] VITALS: BP 131/86; PULSE 90; RESP 16; O2SAT 99
== END 2021-08-31 11:19 | disposition home or self-care (01) ==
PROVIDERS: Emergency Provider Family Medicine; PCP Nurse Practitioner Family
DX: M54.16 Radiculopathy, lumbar region (principal); Z87.891 Personal history of nicotine dependence; Z79.51 Long term (current) use of inhaled steroids; J44.9 Chronic obstructive pulmonary disease, unspecified
CPT/HCPCS: 99281

== ENCOUNTER 2021-11-09 08:53 | Outpatient (CLI) | payer MEDICARE, MEDICAID, SELFPAY ==
--- NOTE | 2021-11-09 13:15 | PFTS_ITS ---
Date of Study:11/09/21 Date of Dictation: 11/12/21 MECHANICS: Postbronchodilator forced vital capacity (FVC) is reduced. Postbronchodilator forced expiratory volume in one second (FEV1) is very severely reduced. FEV1/FVC is reduced. There is no significant response to bronchodilator FLOW VOLUME LOOP: Sloping of expiratory limb suggestive of severe airflow obstruction. LUNG VOLUMES: Total lung capacity (TLC) is normal. Residual volume (RV) is increased. DIFFUSING CAPACITY FOR CARBON MONOXIDE: moderately reduced. INTERPRETATION: The Spirometry showed very severe airflow obstruction. There is no significant response to bronchodilators. Lung volumes suggestive of mild air trapping and hyperinflation. There is moderate gas transfer defect. Clinical correlation recommended. [facility]
== END 2021-11-09 08:54 | disposition home or self-care (01) ==
PROVIDERS: PCP Nurse Practitioner Family; Visit Provider Internal Medicine Critical Care Medicine
DX: J44.9 Chronic obstructive pulmonary disease, unspecified (principal)
CPT/HCPCS: 94060; 94726; 94729; J7614

== ENCOUNTER 2021-12-13 14:26 | Outpatient (CLI) | payer MEDICARE, MEDICAID, SELFPAY ==
--- NOTE | 2021-12-13 14:37 | MM_ITS ---
WS: [id number] BILATERAL 3D TOMOSYNTHESIS DIGITAL SCREENING MAMMOGRAPHY WITH CAD CLINICAL INFORMATION: SCREENING HISTORY: Screening mammogram. Bilateral breast tenderness COMPARISON: None. TECHNIQUE: Bilateral CC and MLO views. FINDINGS: Scattered fibroglandular densities bilaterally. Incidental axillary tail lymph nodes. No suspicious f ocal mass, asymmetry, calcifications, or architectural distortion. No evidence of malignancy. MM/[place] [id number] IMPRESSION: BI-RADS: 2-Benign FOLLOW UP: 1 Year Follow-up Recommend return to annual screening mammography.
== END 2021-12-13 14:27 | disposition home or self-care (01) ==
LOC: RAD 14:26
PROVIDERS: PCP Nurse Practitioner Family; Visit Provider Nurse Practitioner Family
DX: Z12.31 Encounter for screening mammogram for malignant neoplasm of breast (principal)
CPT/HCPCS: 77063; 77067

== ENCOUNTER → 2021-12-15 14:02 | Outpatient (BNVA) | payer MEDICARE, MEDICAID, SELFPAY | PROVIDERS: PCP Nurse Practitioner Family; Visit Provider Internal Medicine Cardiovascular Disease | DX: R00.2 Palpitations (principal); R00.0 Tachycardia, unspecified; J96.10 Chronic respiratory failure, unspecified whether with hypoxia or hypercapnia; Z87.891 Personal history of nicotine dependence; J44.9 Chronic obstructive pulmonary disease, unspecified | CPT/HCPCS: 99214 ==

== ENCOUNTER 2022-02-08 12:03 | Outpatient (CLI) | payer MEDICARE, MEDICAID, SELFPAY ==
--- NOTE | 2022-02-08 12:12 | XR_ITS ---
WS: [id number] DEXA (DUAL ENERGY X-RAY ABSORPTIOMETRY) Bone mineral density was performed using a [employer] machine. HISTORY: POSTMENOPAUSAL COMPARISON: None available. Lumbar spine BMD (L1-L4): 1.210 g/cm2 T score: 0.3 Z score: 0.8 Total hip BMD: Left: 0.627 g/cm2. T score: -3.0 Z score: -2.5 Right: 0.732 g/cm2. T score: -2.2 Z score: -1.7 10 year probability of a major osteoporotic fracture is 20.5%. XR/XR DEXA axial skeleton* [id number] IMPRESSION: OSTEOPOROSIS based upon the WHO classification for females.
== END 2022-02-08 12:04 | disposition home or self-care (01) ==
LOC: RAD 12:04
PROVIDERS: PCP Nurse Practitioner Family; Visit Provider Nurse Practitioner Family
DX: Z78.0 Asymptomatic menopausal state (principal); M81.0 Age-related osteoporosis without current pathological fracture
CPT/HCPCS: 77080

== ENCOUNTER 2022-08-01 13:00 | Outpatient (CLI) | payer OTHER, MEDICAID, SELFPAY | END 2022-08-01 13:01 | disposition home or self-care (01) | LOC: SLEEP 08-02 09:41 | PROVIDERS: PCP Nurse Practitioner Family; Visit Provider Nurse Practitioner Family | DX: G47.10 Hypersomnia, unspecified (principal) | CPT/HCPCS: G0399 ==

== ENCOUNTER 2022-08-18 09:17 | Outpatient (CLI) | payer OTHER, MEDICAID, SELFPAY ==
--- NOTE | 2022-08-18 09:29 | MR_ITS ---
WS: [id number] MRI HEAD WITHOUT CONTRAST TECHNIQUE: Sagittal T1, T2 axial, T2 axial FLAIR, axial and coronal T1 images, axial susceptibility w eighted imaging, axial diffusion weighted images, and coronal T2 images were obtained. Patient report edly allergic to contrast. Exam was ordered without contrast. CLINICAL INFORMATION: SENSORINEURAL HEARING LOSS COMPARISON: None. FINDINGS: No evidence of restricted diffusion to suggest acute ischemia.Ventricular system and basal cisterns a re patent. Mild small vessel changes. No significant parenchymal volume loss. Normal posterior fossa. Normal vascular flow voids at the skull base. No extra-axial fluid collections. No evidence of mass or mass effect. Mild mucosal thickening in the ethmoid air cells. Paranasal sinuses are otherwise wel l aerated. Normal posterior nasopharynx and parapharyngeal fat. Mild mucosal thickening in the mastoi d tips. No hemosiderin on the susceptibly weighted images. Noncontrast IACs are normal in appearance. Noncont rast proximal 7th and 8th cranial nerves appear normal. Noncontrast trigeminal nerve root entry zones appear normal. MR/MR iac's wo con [id number] IMPRESSION: 1. No evidence of restricted diffusion to suggest acute ischemia. 2. Noncontrast IACs appear normal. No evidence of IAC or CP angle lesion. 3. Normal-appearing noncontrast trigeminal nerve root entry zones. 4. Mild mucosal thickening mastoid air cells. Paranasal sinuses appear well ae rated. 5. No hemosiderin on susceptibly weighted images.
== END 2022-08-18 09:18 | disposition home or self-care (01) ==
LOC: RAD 09:23
PROVIDERS: PCP Nurse Practitioner Family; Visit Provider Otolaryngology
DX: H90.8 Mixed conductive and sensorineural hearing loss, unspecified (principal)
CPT/HCPCS: 70551

== ENCOUNTER 2022-10-23 12:38 | Outpatient (CLI) | payer MEDICARE, MEDICAID, SELFPAY ==
--- NOTE | 2022-10-23 12:51 | CT_ITS ---
WS: [id number] CT LEFT HIP, NONCONTRAST. HISTORY: LOOSE BODY IN LEFT HIP JOINT Technique: All CT scans at [facility] use at least one of these dose optimization techniques: automated exposure control; mA and/or kV adjustment per patient size (includes targeted exams where dose is matched to clinical indication); or iterative reconstruction. DLP: 443.99 mGy.cm COMPARISON: LEFT hip radiograph 10/16/2022. No acute fracture is identified. There is a sclerotic line extending vertically through the femoral n deyvi and head. No fracture identified. Also, there is no joint effusion and no loose body within the j oint space. The lytic area extending through the ilium seen radiographically is not completely includ ed on this examination of the hip. The portion that is included has a sclerotic margin suggesting thi s may be a benign nutrient foramen. Visualized acetabulum and pubic rami are normal. CT/CT hip LT wo con* [id number] IMPRESSION: 1. No hip fracture is identified with certainty. There is mild linear sclerosi s through the femoral head and neck. On the special skills officer image thick sclerosis appears symmetric to the RIGHT hip. If there is continued hip pain after several falls consider noncontrast MRI hip evaluation to evaluate for an occult fracture. 2. No joint effusion.
== END 2022-10-23 12:39 | disposition home or self-care (01) ==
LOC: RAD 12:43
PROVIDERS: PCP Nurse Practitioner Family; Visit Provider Nurse Practitioner Family
DX: M24.052 Loose body in left hip (principal)
CPT/HCPCS: 73700

== ENCOUNTER 2022-11-13 20:00 | Outpatient (CLI) | payer MEDICARE, MEDICAID, SELFPAY | END 2022-11-13 20:01 | disposition home or self-care (01) | LOC: SLEEP 11-14 06:12 | PROVIDERS: PCP Nurse Practitioner Family; Visit Provider Nurse Practitioner Family | DX: G47.33 Obstructive sleep apnea (adult) (pediatric) (principal); G47.61 Periodic limb movement disorder | CPT/HCPCS: 95811 ==

== ENCOUNTER → 2022-11-21 13:03 | Outpatient (BNVA) | payer MEDICARE, MEDICAID, SELFPAY | PROVIDERS: PCP Nurse Practitioner Family; Referring Provider Nurse Practitioner Family; Visit Provider Physician Assistant | DX: M54.50 Low back pain, unspecified (principal); M54.9 Dorsalgia, unspecified; M48.062 Spinal stenosis, lumbar region with neurogenic claudication; M25.552 Pain in left hip | CPT/HCPCS: 72110; 99203 ==

== ENCOUNTER → 2023-02-16 10:02 | Outpatient (BNVA) | payer MEDICARE, SELFPAY | PROVIDERS: PCP Nurse Practitioner Family; Visit Provider Nurse Practitioner Family | DX: L57.0 Actinic keratosis (principal); L57.8 Other skin changes due to chronic exposure to nonionizing radiation; L81.4 Other melanin hyperpigmentation; L82.1 Other seborrheic keratosis | CPT/HCPCS: 17000; 99213 ==

== ENCOUNTER → 2023-04-10 13:25 | Outpatient (BNVA) | payer MEDICARE, SELFPAY | PROVIDERS: PCP Nurse Practitioner Family; Visit Provider Internal Medicine Pulmonary Disease | DX: J43.2 Centrilobular emphysema (principal); J96.12 Chronic respiratory failure with hypercapnia; J38.2 Nodules of vocal cords; G47.19 Other hypersomnia; Z87.891 Personal history of nicotine dependence | CPT/HCPCS: 99214 ==

== ENCOUNTER → 2023-04-16 10:18 | Outpatient (BNVA) | payer MEDICARE, SELFPAY | PROVIDERS: PCP Nurse Practitioner Family; Visit Provider Internal Medicine Cardiovascular Disease | DX: R00.2 Palpitations (principal) | CPT/HCPCS: 93005; 99214 ==

== ENCOUNTER → 2023-04-26 08:02 | Outpatient (BNVA) | payer MEDICARE, SELFPAY | PROVIDERS: PCP Nurse Practitioner Family; Visit Provider Internal Medicine Cardiovascular Disease | DX: R00.2 Palpitations (principal); I49.1 Atrial premature depolarization; I49.3 Ventricular premature depolarization | CPT/HCPCS: 93246 ==

== ENCOUNTER 2023-05-01 16:27 | Outpatient (CLI) | payer MEDICARE, SELFPAY ==
--- NOTE | 2023-05-01 16:37 | CT_ITS ---
WS: [id number] CT ABDOMEN PELVIS TECHNIQUE: Noncontrast CT of the abdomen and pelvis with coronal and sagittal reformatted images. CLINICAL INFORMATION: LEFT SIDED ABDOMINAL PAIN COMPARISON: None. DLP: 625.[address] scans at [facility] use at least one of these dose optimization techniques: automated e xposure control; mA and/or kV adjustment per patient size (includes targeted exams where dose is matc hed to clinical indication); or iterative reconstruction. FINDINGS: Lung bases are well aerated. Subsegmental atelectasis in the lingula. Calcified granuloma LEFT lower lobe. Cholecystectomy clips. Adrenal glands are normal. Sigmoid diverticulosis. No evidence of acute diverticulitis. Noncontrast pancreas appears normal. Adr enal glands are normal. No hydronephrosis in either kidney. Tiny fat-containing umbilical hernia. Nor mal caliber abdominal aorta. Prior hysterectomy. IMPRESSION: 1. Sigmoid diverticulosis. No evidence of acute diverticulitis. 2. Prior hysterectomy. 3. Prior cholecystectomy. 4. Tiny esophageal hernia. 5. No hydronephrosis in either kidney. 6. No other acute findings.
== END 2023-05-01 16:28 | disposition home or self-care (01) ==
LOC: RAD 16:27
PROVIDERS: PCP Nurse Practitioner Family; Visit Provider Family Medicine
DX: R10.9 Unspecified abdominal pain (principal); K57.30 Diverticulosis of large intestine without perforation or abscess without bleeding; Z90.710 Acquired absence of both cervix and uterus; Z90.49 Acquired absence of other specified parts of digestive tract
CPT/HCPCS: 74176

== ENCOUNTER 2023-05-11 10:26 | Outpatient (CLI) | payer MEDICARE, SELFPAY ==
--- NOTE | 2023-05-11 10:28 | MM_ITS ---
WS: [id number] BILATERAL 3D TOMOSYNTHESIS DIGITAL SCREENING MAMMOGRAPHY WITH CAD CLINICAL INFORMATION: SCREENING HISTORY: Screening mammogram. No current complaints. COMPARISON: 2021 TECHNIQUE: Bilateral CC and MLO views. FINDINGS: Scattered fibroglandular densities bilaterally. No suspicious focal mass, asymmetry, calcifications, or architectural distortion. No evidence of malignancy. IMPRESSION: MM/[place] [id number] BI-RADS: 1-Negative FOLLOW UP: 1 Year Follow-up Recommend return to annual screening mammography.
== END 2023-05-11 10:27 | disposition home or self-care (01) ==
LOC: RAD 10:26
PROVIDERS: PCP Nurse Practitioner Family; Visit Provider Nurse Practitioner Family
DX: Z12.31 Encounter for screening mammogram for malignant neoplasm of breast (principal)
CPT/HCPCS: 77063; 77067

== ENCOUNTER → 2023-10-16 11:59 | Outpatient (BNVA) | payer MEDICARE, SELFPAY | PROVIDERS: PCP Nurse Practitioner Family; Visit Provider Internal Medicine Cardiovascular Disease | DX: R55 Syncope and collapse (principal); R07.9 Chest pain, unspecified; I47.11 Inappropriate sinus tachycardia, so stated; R07.89 Other chest pain; J43.2 Centrilobular emphysema; G47.33 Obstructive sleep apnea (adult) (pediatric) | CPT/HCPCS: 93005; 99214 ==

== ENCOUNTER → 2023-11-21 14:34 | Outpatient (BNVA) | payer MEDICARE, SELFPAY | PROVIDERS: PCP Nurse Practitioner Family; Visit Provider Nurse Practitioner Family | DX: L82.0 Inflamed seborrheic keratosis (principal); L82.1 Other seborrheic keratosis; D22.5 Melanocytic nevi of trunk; L57.8 Other skin changes due to chronic exposure to nonionizing radiation; L81.4 Other melanin hyperpigmentation | CPT/HCPCS: 99213 ==

== ENCOUNTER 2024-07-30 04:41 | Emergency (ER) | payer MEDICARE, SELFPAY ==
[2024-07-30 04:44] VITALS: BP 156/83; PULSE 91; RESP 16; TEMP 37.1; O2SAT 100; BMI 31.2
--- NOTE | 2024-07-30 04:46 | XRR_ITS ---
PROCEDURE INFORMATION: Exam: XR Chest Exam date and time: 07/30/2024 4:54 AM Age: 63 years old Clinical indication: Cough and shortness of breath TECHNIQUE: Imaging protocol: Radiologic exam of the chest. Views: 1 view. COMPARISON: CR XR chest 1V portable [id number] 07/24/2021 5:47 PM FINDINGS: Lungs: Unremarkable. No consolidation. Pleural spaces: Unremarkable. No pleural effusion. No pneumothorax. Heart/Mediastinum: Unremarkable. No cardiomegaly. Bones/joints: Unremarkable. XR/XR chest 1V portable [id number] IMPRESSION: No acute findings.
[2024-07-30 04:51] VITALS: BP 156/83; PULSE 89; RESP 18; O2SAT 100
--- NOTE | 2024-07-30 04:51 | ECG_ITS ---
[facility] Test Date: 2024-07-30 Pat Name: Laura Dunlap Department: Room: Gender: Female Eye Physician: : [id number] Requested By: Donna Ross Order Number: [id number] Marylou MD: India Frankel M.D. Measurements Intervals [place] Rate: 87 P: 39 CA: 120 QRS: 42 QRSD: 82 T: 59 QT: 361 QTc: 436 Interpretive Statements SINUS RHYTHM Compared to ECG 10/16/2023 12:04:56 No significant changes Electronically Signed On 07-30-2024 22:04:59 CDT by India Frankel M.D. [id number]
--- NOTE | 2024-07-30 04:58 | W.ED.SOB ---
HPI - SOB/Dyspnea General: Chief Complaint: Shortness of Breath/Dyspnea Stated Complaint: Cough\SOB\Conjested Time Seen by Provider: 07/30/24 04:55 History of Present Illness: HPI Narrative: 63-year-old female history of COPD and chronic hypoxemic respiratory failure on 2 L nasal cannula at all time presents emergency room with upper respiratory symptoms for the last couple days. She had a cough and she feels much more short of breath than she usually does. Increased wheeze. No known fevers. She has some malaise. Related Data Home Medications ?Medication ?Instructions ?Recorded ?Confirmed nitroglycerin 0.4 mg sublingual 0.4 mg sublingual Q5M PRN Chest 05/29/19 04/10/23 tablet Pain prednisone 20 mg tablet 20 mg PO TID PRN 12/15/21 04/10/23 tiotropium bromide 18 mcg capsule 1 cap inhalation DAILY 12/15/21 04/10/23 with inhalation device (Spiriva with HandiHaler) Previous Rx's ?Medication ?Instructions ?Recorded albuterol sulfate 90 mcg/actuation See Rx Instructions .Route 12/23/20 aerosol inhaler .COMPLEX #18 grams Symbicort 160 mcg-4.5 See Rx Instructions .Route 04/19/22 mcg/actuation HFA aerosol inhaler .COMPLEX #11 grams (budesonide-formoterol) metoprolol tartrate 25 mg tablet 12.5 mg (1/2 x 25 mg) PO BID #60 12/05/23 tabs benzonatate 200 mg capsule 200 mg PO TID PRN cough #30 caps 07/30/24 doxycycline hyclate 100 mg capsule 100 mg PO BID 7 days #14 caps 07/30/24 prednisone 20 mg tablet 60 mg (3 x 20 mg) PO DAILY 5 days 07/30/24 #15 tabs Allergies Allergy/AdvReac Type Severity Reaction Status Date / Time codeine Allergy Unknown Verified 07/30/24 04:51 Iodinated Contrast Media Allergy Unknown Verified 07/30/24 04:51 levofloxacin (From Levaquin) Allergy ALGY-Anaphy Verified 07/30/24 04:51 laxis Penicillins Allergy Unknown Verified 07/30/24 04:51 Review of Systems Narrative: Constitutional symptoms: Negative except as documented in HPI. Skin symptoms: Negative except as documented in HPI. Eye symptoms: Negative except as documented in HPI. ENMT symptoms: Negative except as documented in HPI. Respiratory symptoms: Negative except as documented in HPI. Cardiovascular symptoms: Negative except as documented in HPI. Gastrointestinal symptoms: Negative except as documented in HPI. Genitourinary symptoms: Negative except as documented in HPI. Musculoskeletal symptoms: Negative except as documented in HPI. Neurologic symptoms: Negative except as documented in HPI. Psychiatric symptoms: Negative except as documented in HPI. Endocrine symptoms: Negative except as documented in HPI. PFSH ED PFSH: Medical History History of sleep apnea History of tachycardia History of atrial fibrillation Chronic hypercapnic respiratory failure Neuropathy COPD (chronic obstructive pulmonary disease) Chronic respiratory failure Tobacco use Chronic bronchitis Chronic cough Surgical History H/O tubal ligation History of hysterectomy History of cholecystectomy H/O breast biopsy History of bronchoscopy Family History Mother , Age 42 Myocardial infarct Sister CAD (coronary artery disease) Brother Parkinson disease Social History Smoking and tobacco/nicotine status: former use of tobacco/nicotine Quit status (tobacco/nicotine): has quit using Year quit tobacco: 1986 - 1.5 PPD x 11 Years Former quit date comment: Started at age 15 years Alcohol intake: never Substance/Drug Use: never Lives independently: Yes Household members: spouse Marital status: Current occupational status: disabled Do you think of yourself as: Straight/Heterosexual Current gender identity: Female Physical Exam Narrative: EXAM NARRATIVE: General: Alert, no acute distress. Skin: Warm, dry. Head: Normocephalic, atraumatic. Neck: Supple, trachea midline. Eye: Extraocular movements are intact. Ears, nose, mouth and throat: Oral mucosa moist. Cardiovascular: Regular rate and rhythm, Normal peripheral perfusion. Respiratory: some expiratory wheeze, mild increased wob, breath sounds are equal, Symmetrical chest wall expansion. Gastrointestinal: Soft, Nontender, Non distended, Normal bowel sounds. Musculoskeletal: Normal ROM, no deformity. Neurological: Alert and oriented, No focal neurological deficit observed. Psychiatric: Cooperative, appropriate mood & affect. Course Vital Signs: Vital signs: Vital Signs Temperature 98.7 F 07/30/24 04:44 Pulse Rate 87 07/30/24 05:20 Respiratory Rate 18 07/30/24 05:20 Blood Pressure 156/83 07/30/24 04:51 Pulse Oximetry 100 07/30/24 05:20 Oxygen Delivery Me thod Nasal Cannula 07/30/24 05:20 Oxygen Flow Rate 3 07/30/24 05:20 MDM - SOB/Dyspnea Medical Decision Making Chest x-ray: No acute process. No infiltrate. No pneumothorax. This was reviewed and interpreted by myself the emergency room physician. I also reviewed the radiology report. Lab Data Labs/Radiology: Laboratory Results Influenza A (PCR) Negative (Negative) 07/30/24 04:56 Influenza Type B (PCR) Negative (Negative) 07/30/24 04:56 RSV (PCR) Negative (Negative) 07/30/24 04:56 SARS-CoV-2 (PCR) Negative (Negative) 07/30/24 04:56 All radiology interpretation(s) finalized by discharge Discharge Plan Discharge Patient Disposition: Home Clinical Impression: COPD with acute exacerbation Condition: Stable Prescriptions: New doxycycline hyclate 100 mg capsule 100 mg PO BID 7 Days Qty: 14 0RF prednisone 20 mg tablet 60 mg PO DAILY 5 Days Qty: 15 0RF benzonatate 200 mg capsule 200 mg PO TID PRN (Reason: cough) Qty: 30 0RF No Action nitroglycerin 0.4 mg tablet, sublingual 0.4 mg SUBLINGUAL Q5M PRN (Reason: Chest Pain) prednisone 20 mg tablet 20 mg PO TID PRN Rx Instructions: 1 p.o. 3 times daily x3 days, 1 p.o. twice daily x2 days, 1 p.o. daily x2 days Spiriva with HandiHaler 18 mcg capsule, w/inhalation device 1 cap inhalation DAILY Rx Instructions: puncture 1 cap using device; one dose = 2 inhalations albuterol sulfate 90 mcg/actuation HFA aerosol inhaler See Rx Instructions .ROUTE .COMPLEX Qty: 18 3RF Dose Instruction: INHALE 2 PUFFS BY MOUTH EVERY 4 HOURS NEEDED FOR SHORTNESS OF BREATH Rx Instructions: INHALE 2 PUFFS BY MOUTH EVERY 4 HOURS NEEDED FOR SHORTNESS OF BREATH budesonide-formoterol [Symbicort] 160-4.5 mcg/actuation HFA aerosol inhaler See Rx Instructions .ROUTE .COMPLEX Qty: 11 5RF Dose Instruction: Inhale 2 puffs by mouth twice daily Rx Instructions: Inhale 2 puffs by mouth twice daily metoprolol tartrate 25 mg tablet 12.5 mg PO BID Qty: 60 0RF Discharge Orders: Discharge ED (Routine); Ordered 07/30/24 Ordered By: Donna Monique Referrals: Germania Noble FNP [Primary Care Provider] - Discharge Diet: Usual diet Discharge Activity: Increase activity as tolerated Patient Instructions: COPD (Chronic Obstructive Pulmonary Disease) (ED), Opioid Safety, Pain Management Activity Restrictions/Additional Instructions: Thank you for choosing [facility] for your healthcare needs today. Please realize this is an emergency room and that we are providing you with a medical screening exam and this may not be complete and all inclusive of all the testing and or work up that you may need to determine your ailment or severity of your illness. You have been screened and evaluated and felt safe for discharge. Health conditions do change or evolve sometimes and as such it is important that you follow up with your Primary Doctor to be re checked, 3-5 days is a general good time frame for follow up. 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
[2024-07-30] MEDS: methylPREDNISolone sod succ 125 mg/2 mL INJ IVP (05:08)
[2024-07-30] MEDS: albuterol 2.5 mg/3 mL Neb INHALATION (05:18)
[2024-07-30] MEDS: ipratropium-albuterol 3 mL Neb INHALATION (05:19)
[2024-07-30 05:20] VITALS: PULSE 87; RESP 18; O2SAT 100
[2024-07-30 05:38] LABS: Influenza A NEGATIVE (Negative); Influenza B NEGATIVE (Negative); Respiratory Syncytial Virus Ce NEGATIVE (Negative); SARS-CoV-2 PCR NEGATIVE (Negative)
[2024-07-30 05:47] VITALS: BP 149/73; PULSE 64; O2SAT 100
== END 2024-07-30 05:48 | disposition home or self-care (01) ==
PROVIDERS: Emergency Provider Emergency Medicine; PCP Nurse Practitioner Family
DX: J44.1 Chronic obstructive pulmonary disease with (acute) exacerbation (principal); Z11.52 Encounter for screening for COVID-19; Z87.891 Personal history of nicotine dependence
CPT/HCPCS: 71045; 87637; 93005; 94640; 96374; 99284; J2919; J7613; J9999

== ENCOUNTER → 2024-11-26 15:34 | Outpatient (BNVA) | payer MEDICARE, SELFPAY | PROVIDERS: PCP Nurse Practitioner Family; Visit Provider Nurse Practitioner Family | DX: L82.1 Other seborrheic keratosis (principal); D22.5 Melanocytic nevi of trunk; L57.8 Other skin changes due to chronic exposure to nonionizing radiation; L81.4 Other melanin hyperpigmentation | CPT/HCPCS: 99213 ==

== ENCOUNTER → 2025-03-24 09:47 | Outpatient (BNVA) | payer MEDICARE, SELFPAY | PROVIDERS: PCP Nurse Practitioner Family; Referring Provider Nurse Practitioner Family; Visit Provider Internal Medicine | DX: J44.89 Other specified chronic obstructive pulmonary disease (principal); J96.10 Chronic respiratory failure, unspecified whether with hypoxia or hypercapnia; Z99.81 Dependence on supplemental oxygen; G47.33 Obstructive sleep apnea (adult) (pediatric); J30.2 Other seasonal allergic rhinitis; R00.2 Palpitations; Z87.891 Personal history of nicotine dependence; J44.9 Chronic obstructive pulmonary disease, unspecified; T78.40XA Allergy, unspecified, initial encounter; X58.XXXA Exposure to other specified factors, initial encounter | CPT/HCPCS: 99214; Q3014 ==

== ENCOUNTER 2025-03-24 10:40 | Outpatient (CLI) | payer MEDICARE, SELFPAY | END 2025-03-24 10:41 | disposition home or self-care (01) | LOC: LAB 10:44 | PROVIDERS: PCP Nurse Practitioner Family; Visit Provider Internal Medicine | DX: J44.9 Chronic obstructive pulmonary disease, unspecified (principal); T78.40XA Allergy, unspecified, initial encounter; X58.XXXA Exposure to other specified factors, initial encounter | CPT/HCPCS: 36415; 82103; 85025; 86003 ==

== ENCOUNTER → 2025-04-02 10:33 | Outpatient (BNVA) | payer OTHER, SELFPAY | PROVIDERS: PCP Nurse Practitioner Family; Visit Provider Internal Medicine Cardiovascular Disease | DX: I47.11 Inappropriate sinus tachycardia, so stated (principal); R07.89 Other chest pain; J44.9 Chronic obstructive pulmonary disease, unspecified; G47.33 Obstructive sleep apnea (adult) (pediatric); Z99.81 Dependence on supplemental oxygen; Z87.891 Personal history of nicotine dependence | CPT/HCPCS: 99214 ==